=== PATIENT | male | born 1930 | race Caucasian/White ===

== ENCOUNTER 2018-01-02 17:33 | Emergency (ER) | payer MEDICARE, OTHER ==
[~2018-01-02] VITALS: Ht 185.4 cm; Wt 90.7 kg
[~2018-01-02 17:33] MED LIST: ALBUIS IH; ALLO100; ALLO300 PO; AMLO10 PO; Antivert25 MG PO; CARB200 PO; CELE200 PO; CYCL0.05OP; Cardura PO; Cardura Xl8 MG PO; DIAZ5; DIAZ5 PO; DOXA1; DOXA4 PO; ELIQUIS2.5 MG PO; GABA100; GABA100 PO; HYDACE10B; HYDR1TAB94 PO; LEVSOD50; MAGOXI400 PO; MAGSULP; Norco 5-325 Ta1 EACH PO; OXYACE5T PO; POTA10T; POTA10T PO; PRED20 PO; QVAR7.3 G1 IH; SPIR25 PO; Synthroid25 MCG PO; TORS10 PO; TORSE20 PO; TRIAOIA; TRIHYD PO; Vitamin D2000 UNIT PO; WARF1 PO; WARF2 PO; ZAFI20; ZAFI20 PO; [UNRECOGNIZED DRUG - CODE] PO
[2018-01-02 18:20] LABS: Source, Urine Catheter
[2018-01-02 18:25] LABS: Calcium, Ionized (POC) 1.05 mmol/L (1.10-1.46); Chloride (POC) 98 mmol/L (98-108); Creatinine (POC) 3.4 mg/dL (0.8-1.3); Glucose (ISTAT POC) 124 mg/dL (70-99); Hemoglobin (POC) 6.1 g/dL (13.5-17.5); Potassium (POC) 3.5 mmol/L (3.5-5.5); Sodium (POC) 137 mmol/L (135-148); Total CO2 (POC) 26 mmol/L (21-32)
[2018-01-02 18:37] LABS: Bilirubin, Urine Neg (Neg); Blood, Urine 3+ (Neg); Glucose Qualitative, Urine Neg (Neg); Ketones, Urine Neg (Neg); Leukocyte Esterase, Urine Neg (Neg); Nitrite, Urine Neg (Neg); Protein, Urine Neg (Neg); Specific Gravity, Urine 1.015 (1.003-1.022); Urobilinogen, Urine NORM (Normal)
[2018-01-02 18:46] LABS: Appearance, Urine Clear (Clear); Color, Urine Pale Yellow (P-Yellow)
[2018-01-02 18:46] LABS: BASOPHILS ABSOLUTE AUTO 0.01 K/mm3 (0.00-0.23); BASOPHILS PERCENT AUTO 0 % (0-2); EOSINOPHILS ABSOLUTE AUTO 0.06 K/mm3 (0.00-0.68); EOSINOPHILS PERCENT AUTO 1 % (0-6); IMMATURE GRAN ABSOLUTE AUTO 0.16 K/mm3 (0.00-0.10); IMMATURE GRAN PERCENT AUTO 2 % (0-1); LYMPHOCYTES PERCENT AUTO 12 % (21-46); MONOCYTES ABSOLUTE AUTO 0.55 K/mm3 (0.16-1.47); MONOCYTES PERCENT AUTO 5 % (4-13); Mean Corpuscular HGB 30.9 pg (26.0-34.0); Mean Corpuscular HGB Conc 31.1 g/dL (31.5-36.5); Mean Corpuscular Volume 99 fL (80-100); Mean Platelet Volume 9.9 fL (9.1-12.4); NEUTROPHILS ABSOLUTE AUTO 8.74 K/mm3 (1.96-9.15); NEUTROPHILS PERCENT AUTO 81 % (41-73); NRBC ABSOLUTE 0.13 K/mm3 (0.00-0.02); NRBC Auto 1.2 /100 WBC (0.0-0.2); Platelet Count 347 K/mm3 (150-400); RDW Coefficient Variation 18.1 % (11.7-14.2); RDW Standard Deviation 57.1 fL (35.1-46.3); Red Blood Cell Count 1.52 M/mm3 (4.30-5.90); White Blood Cell Count 10.82 K/mm3 (4.00-11.30)
[2018-01-02 18:47] LABS: Bacteria Not Seen /hpf; Red Blood Cells, Urine Not Seen /hpf (0-2); Squamous Epithelial Cells Not Seen /hpf (Few); White Blood Cells, Urine Not Seen /hpf (0-5)
[2018-01-02 18:48] LABS: Albumin, Blood 3.4 g/dL (3.4-5.0); Bilirubin, Total 0.4 mg/dL (0.1-1.0); Bun/Creatinine Ratio 26.9 (12.0-20.0); Calcium, Blood 8.7 mg/dL (8.5-10.1); Creatinine, Blood 3.01 mg/dL (0.60-1.20); Globulin, Blood 3.4 g/dL (2.2-4.0); Hemoglobin 4.7 g/dL (13.5-17.5); Potassium, Blood 3.6 mmol/L (3.5-5.5); Total Protein, Blood 6.8 g/dL (6.4-8.2)
[2018-01-02 18:49] LABS: Hematocrit 15.1 % (37.0-53.0)
[2018-01-02] MEDS ORDERED: ALBU90OI6 INH (18:58)
[2018-01-02] MEDS ORDERED: ZAFI20 PO (18:58)
[2018-01-02] MEDS ORDERED: LIDO700A20 TOP (18:59)
[2018-01-02] MEDS ORDERED: MAG-OXIDE200 MG PO (18:59)
[2018-01-02] MEDS ORDERED: DOCU100 PO (19:00)
[2018-01-02 19:44] LABS: International Normalized Ratio 1.07; Prothrombin Time Results 11.1 Sec (9.7-11.5)
[2018-05-11] MEDS ORDERED: CEFU500T30 PO (14:55)
[2018-05-11] MEDS ORDERED: GABA100 PO (14:56)
[2018-05-11] MEDS ORDERED: AZIT500 PO (14:56)
[2018-10-10] MEDS ORDERED: ZAFI20 PO (05:13)
[2018-10-10] MEDS ORDERED: Aspercreme 1035.4 GM (05:18)
[2018-10-10] MEDS ORDERED: ALLO300 PO (05:19)
[2018-10-10] MEDS ORDERED: DOC250 PO (05:19)
[2018-10-10] MEDS ORDERED: FAMO20 PO (05:20)
[2018-10-10] MEDS ORDERED: FERSU90EL PO (05:21)
[2018-10-10] MEDS ORDERED: CEPH500 PO (06:24)
== END 2018-01-02 21:39 | disposition short-term general hospital (02) ==
LOC: ER 17:33
PROVIDERS: Physician Assistant
DX: K92.2 Gastrointestinal hemorrhage, unspecified (principal); I12.9 Hypertensive chronic kidney disease with stage 1 through stage 4 chronic kidney disease, or unspecified chronic kidney disease; N18.9 Chronic kidney disease, unspecified; D63.1 Anemia in chronic kidney disease; E03.9 Hypothyroidism, unspecified; J44.9 Chronic obstructive pulmonary disease, unspecified; M10.9 Gout, unspecified; I35.0 Nonrheumatic aortic (valve) stenosis; Z87.891 Personal history of nicotine dependence; Z98.890 Other specified postprocedural states; Z79.899 Other long term (current) drug therapy; Z88.5 Allergy status to narcotic agent; Z88.6 Allergy status to analgesic agent; Z88.8 Allergy status to other drugs, medicaments and biological substances
CPT/HCPCS: 36430; 51701; 80047; 80053; 81001; 82272; 83605; 85014; 85025; 85610; 85730; 86850; 86900; 86901; 86923; 96374; 96375; 99285; C9113; P9016

== ENCOUNTER 2018-02-06 17:59 | Inpatient (IN) | payer MEDICARE, OTHER ==
[~2018-02-06] VITALS: Ht 180.3 cm; Wt 91.2 kg
[~2018-02-06 17:59] MED LIST changes: +ALBU90OI6 INH; +DOCU100 PO; +LIDO700A20 TOP; +MAG-OXIDE200 MG PO
[2018-02-06 18:30] LABS: Calcium, Ionized (POC) 1.03 mmol/L (1.10-1.46); Chloride (POC) 101 mmol/L (98-108); Creatinine (POC) 3.1 mg/dL (0.8-1.3); Glucose (ISTAT POC) 118 mg/dL (70-99); Hemoglobin (POC) 9.5 g/dL (13.5-17.5); Potassium (POC) 4.4 mmol/L (3.5-5.5); Sodium (POC) 137 mmol/L (135-148); Total CO2 (POC) 26 mmol/L (21-32)
[2018-02-06 18:39] LABS: BASOPHILS ABSOLUTE AUTO 0.02 K/mm3 (0.00-0.23); BASOPHILS PERCENT AUTO 0 % (0-2); EOSINOPHILS ABSOLUTE AUTO 0.01 K/mm3 (0.00-0.68); EOSINOPHILS PERCENT AUTO 0 % (0-6); Hematocrit 28.3 % (37.0-53.0); Hemoglobin 9.1 g/dL (13.5-17.5); IMMATURE GRAN ABSOLUTE AUTO 0.09 K/mm3 (0.00-0.10); IMMATURE GRAN PERCENT AUTO 1 % (0-1); LYMPHOCYTES ABSOLUTE AUTO 0.25 K/mm3 (0.84-5.20); LYMPHOCYTES PERCENT AUTO 2 % (21-46); MONOCYTES ABSOLUTE AUTO 0.14 K/mm3 (0.16-1.47); MONOCYTES PERCENT AUTO 1 % (4-13); Mean Corpuscular HGB 28.3 pg (26.0-34.0); Mean Corpuscular HGB Conc 32.2 g/dL (31.5-36.5); Mean Platelet Volume 9.2 fL (9.1-12.4); NEUTROPHILS ABSOLUTE AUTO 14.95 K/mm3 (1.96-9.15); NEUTROPHILS PERCENT AUTO 97 % (41-73); Platelet Count 328 K/mm3 (150-400); RDW Coefficient Variation 15.5 % (11.7-14.2); RDW Standard Deviation 50.4 fL (35.1-46.3); Red Blood Cell Count 3.21 M/mm3 (4.30-5.90); White Blood Cell Count 15.46 K/mm3 (4.00-11.30)
[2018-02-06 18:42] LABS: Mean Corpuscular Volume 88 fL (80-100)
[2018-02-06] MEDS ORDERED: FAMO20 PO (18:42)
[2018-02-06] MEDS ORDERED: MAGOXI400 PO (18:42)
[2018-02-06] MEDS ORDERED: POTCHL20ER PO (18:43)
[2018-02-06] MEDS ORDERED: GAVILAX17 GM PO (18:43)
[2018-02-06] MEDS ORDERED: TORSE20 PO (18:44)
[2018-02-06] MEDS ORDERED: ELIQUIS2.5 MG PO (18:47)
[2018-02-06] MEDS ORDERED: SENN187 PO (18:48)
[2018-02-06] MEDS ORDERED: QUET25 PO (18:48)
[2018-02-06] MEDS ORDERED: TAMS.4ER PO (18:49)
[2018-02-06] MEDS ORDERED: FERSU220EL PO (18:49)
[2018-02-06] MEDS ORDERED: Vitamin C100 M1 (18:50)
[2018-02-06] MEDS ORDERED: BECLOMETHASONE (18:50)
[2018-02-06] MEDS ORDERED: ACET325 PO (18:51)
[2018-02-06] MEDS ORDERED: ALBU90OI61 INH (18:52)
[2018-02-06] MEDS ORDERED: MECL12.5 PO (18:53)
[2018-02-06] MEDS ORDERED: LIDO700A20 TOP (18:53)
[2018-02-06 18:56] LABS: Albumin, Blood 2.7 g/dL (3.4-5.0); Albumin/Globulin Ratio 0.6 (0.8-1.8); Bilirubin, Total 0.4 mg/dL (0.1-1.0); Bun/Creatinine Ratio 14.5 (12.0-20.0); Calcium, Blood 8.5 mg/dL (8.5-10.1); Creatinine, Blood 3.04 mg/dL (0.60-1.20); Globulin, Blood 4.9 g/dL (2.2-4.0); Potassium, Blood 4.4 mmol/L (3.5-5.5); Total Protein, Blood 7.6 g/dL (6.4-8.2)
[2018-02-06 19:05] LABS: International Normalized Ratio 1.08; Prothrombin Time Results 11.3 Sec (9.7-11.5)
[2018-02-06 19:39] LABS: Source, Urine Catheter
[2018-02-06 19:42] LABS: Appearance, Urine Hazy (Clear); Bilirubin, Urine Neg (Neg); Blood, Urine 5+ (Neg); Color, Urine Yellow (P-Yellow); Glucose Qualitative, Urine Neg (Neg); Ketones, Urine Neg (Neg); Leukocyte Esterase, Urine 2+ (Neg); Nitrite, Urine Pos (Neg); Protein, Urine 2+ (Neg); Urobilinogen, Urine NORM (Normal)
[2018-02-06 19:53] LABS: Bacteria Mod /hpf; Red Blood Cells, Urine 25-50 /hpf (0-2); Squamous Epithelial Cells Rare /hpf (Few); White Blood Cells, Urine 25-50 /hpf (0-5)
[2018-02-07 00:13] LABS: U Amphetamine Screen Not Detected; U Barbituate Screen Not Detected; U Benzodiazapine Screen Not Detected; U Buprenorphine Screen Not Detected; U Cannabinoids Screen Not Detected; U Cocaine Screen Not Detected; U Methadone Screen Not Detected; U Methamphetamine Screen Not Detected; U Opiates Screen DETECTED; U Oxycodone Screen Not Detected; U Phencyclidine Screen Not Detected; U Propoxyphene Screen Not Detected
[2018-02-07 00:21] LABS: Influenza A Negative (NEGATIVE); Influenza B Negative (NEGATIVE)
[2018-02-07 04:18] LABS: BASOPHILS ABSOLUTE AUTO 0.03 K/mm3 (0.00-0.23); BASOPHILS PERCENT AUTO 0 % (0-2); EOSINOPHILS PERCENT AUTO 0 % (0-6); Hematocrit 23.9 % (37.0-53.0); Hemoglobin 7.5 g/dL (13.5-17.5); IMMATURE GRAN ABSOLUTE AUTO 0.15 K/mm3 (0.00-0.10); IMMATURE GRAN PERCENT AUTO 1 % (0-1); LYMPHOCYTES ABSOLUTE AUTO 0.49 K/mm3 (0.84-5.20); LYMPHOCYTES PERCENT AUTO 2 % (21-46); MONOCYTES ABSOLUTE AUTO 0.41 K/mm3 (0.16-1.47); MONOCYTES PERCENT AUTO 2 % (4-13); Mean Corpuscular HGB Conc 31.4 g/dL (31.5-36.5); Mean Corpuscular Volume 89 fL (80-100); Mean Platelet Volume 9.4 fL (9.1-12.4); NEUTROPHILS ABSOLUTE AUTO 20.34 K/mm3 (1.96-9.15); NEUTROPHILS PERCENT AUTO 95 % (41-73); Platelet Count 279 K/mm3 (150-400); RDW Coefficient Variation 15.8 % (11.7-14.2); RDW Standard Deviation 50.9 fL (35.1-46.3); Red Blood Cell Count 2.68 M/mm3 (4.30-5.90); White Blood Cell Count 21.42 K/mm3 (4.00-11.30)
[2018-02-07 04:39] LABS: Albumin, Blood 1.9 g/dL (3.4-5.0); Albumin/Globulin Ratio 0.5 (0.8-1.8); Bilirubin, Total 0.3 mg/dL (0.1-1.0); Calcium, Blood 7.4 mg/dL (8.5-10.1); Creatinine, Blood 2.64 mg/dL (0.60-1.20); Globulin, Blood 4.1 g/dL (2.2-4.0); Potassium, Blood 3.9 mmol/L (3.5-5.5)
[2018-02-07 14:14] LABS: Hematocrit 25.5 % (37.0-53.0); Hemoglobin 8.1 g/dL (13.5-17.5)
[2018-02-08] MEDS ORDERED: Flonase 0.05% N16 GM (16:08)
== END 2018-02-08 13:08 | DRG 871 ==
LOC: ER 17:59 → PCU 20:38 → MEDS 02-07 16:14 → ENPENDDIS 02-08 09:38 → MEDS 02-08 13:08
PROVIDERS: Emergency Medicine; Hospitalist; Internal Medicine
DX: A41.9 Sepsis, unspecified organism (principal); J96.01 Acute respiratory failure with hypoxia; G93.40 Encephalopathy, unspecified; N17.9 Acute kidney failure, unspecified; N39.0 Urinary tract infection, site not specified; I12.9 Hypertensive chronic kidney disease with stage 1 through stage 4 chronic kidney disease, or unspecified chronic kidney disease; N18.3 Chronic kidney disease, stage 3 (moderate); M10.9 Gout, unspecified; Z86.711 Personal history of pulmonary embolism; E03.9 Hypothyroidism, unspecified; J44.9 Chronic obstructive pulmonary disease, unspecified; I35.0 Nonrheumatic aortic (valve) stenosis; Z66 Do not resuscitate; R33.9 Retention of urine, unspecified; D64.9 Anemia, unspecified; I48.91 Unspecified atrial fibrillation
CPT/HCPCS: 36415; 36430; 51702; 51798; 70450; 71045; 80047; 80053; 81001; 83605; 85014; 85018; 85025; 85610; 85730; 86850; 86900; 86901; 86923; 87040; 87077; 87086; 87186; 87804; 93005; 93010; 94760; 96361; 96365; 96366; 96368; 99285; J0456; J0696; J1650; J1956; J2543; J7030; J7050; P9016

== ENCOUNTER → 2018-04-06 | Outpatient (CLI) | payer MEDICARE, OTHER ==
[~2018-04-06] MED LIST changes: +ACET325 PO; +ALBU90OI61 INH; +BECLOMETHASONE; +FAMO20 PO; +FERSU220EL PO; +Flonase 0.05% N16 GM; +GAVILAX17 GM PO; +MECL12.5 PO; +POTCHL20ER PO; +QUET25 PO; +SENN187 PO; +TAMS.4ER PO; +Vitamin C100 M1
[2018-04-06 17:02] LABS: RETIC HGB EQUIVALENT 29.7 pg (28.20-36.60); RETICULOCYTE COUNT PERCENT 1.26 % (0.50-2.50)
[2018-04-11 21:08] LABS: ALBUMIN 3.1 g/dL (2.9-4.4); ALPHA-1-GLOBULIN 0.3 g/dL (0.0-0.4); ALPHA-2-GLOBULIN 0.8 g/dL (0.4-1.0); BETA GLOBULIN 0.9 g/dL (0.7-1.3); GAMMA GLOBULIN 1.2 g/dL (0.4-1.8); GLOBULIN, TOTAL 3.2 g/dL (2.2-3.9); IMMUNOGLOBULIN A, QN, SERUM 319 mg/dL (61-437); IMMUNOGLOBULIN G, QN, SERUM 1029 mg/dL (700-1600); IMMUNOGLOBULIN M, QN, SERUM 88 mg/dL (15-143); M-SPIKE 0.3 g/dL (Not Observed); PROTEIN, TOTAL, SERUM 6.3 g/dL (6.0-8.5)
== END ==
LOC: LAB SHORT 16:10 → LAB 16:10
PROVIDERS: Internal Medicine Hematology & Oncology
DX: N18.4 Chronic kidney disease, stage 4 (severe) (principal); E61.1 Iron deficiency; D51.0 Vitamin B12 deficiency anemia due to intrinsic factor deficiency
CPT/HCPCS: 82306; 82607; 82668; 82746; 82784; 84165; 85045; 86334

== ENCOUNTER 2018-12-11 00:38 | Emergency (ER) | payer MEDICARE, OTHER ==
[~2018-12-11] VITALS: Ht 182.9 cm; Wt 113.4 kg
[~2018-12-11 00:38] MED LIST changes: +AZIT500 PO; +Aspercreme 1035.4 GM; +CEFU500T30 PO; +CEPH500 PO; +DOC250 PO; +FERSU90EL PO
[2018-12-11] MEDS ORDERED: LOPE2C PO (00:54)
[2018-12-11] MEDS ORDERED: ACCOLATE PO (00:55)
[2018-12-11] MEDS ORDERED: ANTACID PLUS A355 M1 PO (00:56)
[2018-12-11] MEDS ORDERED: Aspercreme 1035.4 GM TP (00:56)
[2018-12-11] MEDS ORDERED: SENN187 PO (00:57)
[2018-12-11] MEDS ORDERED: TAMS.4ER PO (00:58)
[2018-12-11] MEDS ORDERED: SPIR25 PO (00:58)
[2018-12-11] MEDS ORDERED: TORS10 PO (00:59)
[2018-12-11] MEDS ORDERED: VITAMIN C500 M1 PO (01:00)
[2018-12-11] MEDS ORDERED: MECL12.5 PO (01:04)
[2018-12-11] MEDS ORDERED: Milk Of Ma400 MG/5 M PO (01:05)
== END 2018-12-11 02:54 | disposition home or self-care (01) ==
LOC: ER 00:38
DX: T40.2X1A Poisoning by other opioids, accidental (unintentional), initial encounter (principal); R41.82 Altered mental status, unspecified; Z88.5 Allergy status to narcotic agent; Z88.8 Allergy status to other drugs, medicaments and biological substances; Z79.899 Other long term (current) drug therapy; I13.0 Hypertensive heart and chronic kidney disease with heart failure and stage 1 through stage 4 chronic kidney disease, or unspecified chronic kidney disease; N18.9 Chronic kidney disease, unspecified; I50.9 Heart failure, unspecified; E03.9 Hypothyroidism, unspecified; J44.9 Chronic obstructive pulmonary disease, unspecified
CPT/HCPCS: 70450; 93005; 93010; 99285-25

== ENCOUNTER 2019-03-20 08:35 | Emergency (ER) | payer MEDICARE, OTHER ==
[~2019-03-20] VITALS: Ht 182.9 cm; Wt 79.4 kg
[~2019-03-20 08:35] MED LIST changes: +ACCOLATE PO; +ANTACID PLUS A355 M1 PO; +Aspercreme 1035.4 GM TP; +LOPE2C PO; +Milk Of Ma400 MG/5 M PO; +VITAMIN C500 M1 PO
[2019-03-20] MEDS ORDERED: ALLO300 PO (08:44)
[2019-03-20] MEDS ORDERED: Ferrous Sulfat325 M2 PO (08:47)
[2019-03-20 10:04] LABS: BASOPHILS ABSOLUTE AUTO 0.06 K/mm3 (0.00-0.23); BASOPHILS PERCENT AUTO 1 % (0-2); EOSINOPHILS ABSOLUTE AUTO 0.25 K/mm3 (0.00-0.68); EOSINOPHILS PERCENT AUTO 3 % (0-6); Hematocrit 36.7 % (37.0-53.0); Hemoglobin 11.7 g/dL (13.5-17.5); IMMATURE GRAN ABSOLUTE AUTO 0.02 K/mm3 (0.00-0.10); IMMATURE GRAN PERCENT AUTO 0 % (0-1); LYMPHOCYTES ABSOLUTE AUTO 1.29 K/mm3 (0.84-5.20); LYMPHOCYTES PERCENT AUTO 18 % (21-46); MONOCYTES ABSOLUTE AUTO 0.52 K/mm3 (0.16-1.47); MONOCYTES PERCENT AUTO 7 % (4-13); Mean Corpuscular HGB 31.5 pg (26.0-34.0); Mean Corpuscular HGB Conc 31.9 g/dL (31.5-36.5); Mean Corpuscular Volume 99 fL (80-100); Mean Platelet Volume 9.5 fL (9.1-12.4); NEUTROPHILS ABSOLUTE AUTO 5.15 K/mm3 (1.96-9.15); NEUTROPHILS PERCENT AUTO 71 % (41-73); Platelet Count 235 K/mm3 (150-400); RDW Coefficient Variation 14.1 % (11.7-14.2); RDW Standard Deviation 50.3 fL (35.1-46.3); Red Blood Cell Count 3.72 M/mm3 (4.30-5.90); White Blood Cell Count 7.29 K/mm3 (4.00-11.30)
[2019-03-20 10:16] LABS: Albumin, Blood 3.2 g/dL (3.4-5.0); Albumin/Globulin Ratio 0.7 (0.8-1.8); Bilirubin, Total 0.4 mg/dL (0.1-1.0); Bun/Creatinine Ratio 16.8 (12.0-20.0); Calcium, Blood 9.7 mg/dL (8.5-10.1); Creatinine, Blood 3.45 mg/dL (0.60-1.20); Globulin, Blood 4.6 g/dL (2.2-4.0); Potassium, Blood 4.5 mmol/L (3.5-5.5); Total Protein, Blood 7.8 g/dL (6.4-8.2)
[2019-03-20 11:58] LABS: Source, Urine Catheter
[2019-03-20 12:04] LABS: Bilirubin, Urine Neg (Neg); Blood, Urine 1+ (Neg); Glucose Qualitative, Urine Neg (Neg); Ketones, Urine Neg (Neg); Leukocyte Esterase, Urine 3+ (Neg); Nitrite, Urine Neg (Neg); Protein, Urine 2+ (Neg); Specific Gravity, Urine 1.015 (1.003-1.022); Urobilinogen, Urine NORM (Normal)
[2019-03-20 12:15] LABS: Appearance, Urine Hazy (Clear); Color, Urine Yellow (P-Yellow)
[2019-03-20 12:16] LABS: Bacteria Many /hpf; Squamous Epithelial Cells Few /hpf (Few); White Blood Cells, Urine 25-50 /hpf (0-5)
[2019-03-20] MEDS ORDERED: CEPH500 PO (13:27)
== END 2019-03-20 15:56 | disposition home or self-care (01) ==
LOC: ER 08:35
PROVIDERS: Emergency Medicine
DX: N39.0 Urinary tract infection, site not specified (principal); Z88.5 Allergy status to narcotic agent; Z88.8 Allergy status to other drugs, medicaments and biological substances; Z88.1 Allergy status to other antibiotic agents; Z79.899 Other long term (current) drug therapy; I13.0 Hypertensive heart and chronic kidney disease with heart failure and stage 1 through stage 4 chronic kidney disease, or unspecified chronic kidney disease; I50.9 Heart failure, unspecified; N18.9 Chronic kidney disease, unspecified; E03.9 Hypothyroidism, unspecified; D64.9 Anemia, unspecified; J44.9 Chronic obstructive pulmonary disease, unspecified
CPT/HCPCS: 70450; 71046; 80053; 81001; 85025; 87086; 93005; 93010; 96374; 96375; 99285-25; J0696; J2310

== ENCOUNTER 2019-04-24 07:01 | Inpatient (IN) | payer MEDICARE, OTHER ==
[~2019-04-24] VITALS: Ht 182.9 cm; Wt 84.1 kg
[~2019-04-24 07:01] MED LIST changes: +ASCO500 PO; +Ferrous Sulfat325 M2 PO; -VITAMIN C500 M1 PO
[2019-04-24 07:14] LABS: Source, Urine Catheter
[2019-04-24 07:17] LABS: Appearance, Urine Clear (Clear); Bilirubin, Urine Neg (Neg); Blood, Urine 1+ (Neg); Color, Urine Yellow (P-Yellow); Glucose Qualitative, Urine Neg (Neg); Ketones, Urine Neg (Neg); Leukocyte Esterase, Urine Neg (Neg); Nitrite, Urine Neg (Neg); Protein, Urine 2+ (Neg); Specific Gravity, Urine 1.015 (1.003-1.022); Urobilinogen, Urine NORM (Normal)
[2019-04-24 07:23] LABS: BASOPHILS ABSOLUTE AUTO 0.03 K/mm3 (0.00-0.23); BASOPHILS PERCENT AUTO 0 % (0-2); EOSINOPHILS ABSOLUTE AUTO 0.06 K/mm3 (0.00-0.68); EOSINOPHILS PERCENT AUTO 1 % (0-6); Hematocrit 38.8 % (37.0-53.0); Hemoglobin 12.4 g/dL (13.5-17.5); IMMATURE GRAN ABSOLUTE AUTO 0.06 K/mm3 (0.00-0.10); IMMATURE GRAN PERCENT AUTO 1 % (0-1); LYMPHOCYTES ABSOLUTE AUTO 1.22 K/mm3 (0.84-5.20); LYMPHOCYTES PERCENT AUTO 14 % (21-46); MONOCYTES ABSOLUTE AUTO 0.53 K/mm3 (0.16-1.47); MONOCYTES PERCENT AUTO 6 % (4-13); Mean Corpuscular Volume 97 fL (80-100); Mean Platelet Volume 9.7 fL (9.1-12.4); NEUTROPHILS ABSOLUTE AUTO 7.08 K/mm3 (1.96-9.15); NEUTROPHILS PERCENT AUTO 79 % (41-73); Platelet Count 289 K/mm3 (150-400); RDW Coefficient Variation 14.2 % (11.7-14.2); RDW Standard Deviation 50.2 fL (35.1-46.3); White Blood Cell Count 8.98 K/mm3 (4.00-11.30)
[2019-04-24] MEDS ORDERED: CARB100ER PO (07:30)
[2019-04-24] MEDS ORDERED: Flonase 0.05% N16 GM (07:31)
[2019-04-24] MEDS ORDERED: LEVSOD25 PO ×2 (07:31→10:16)
[2019-04-24] MEDS ORDERED: MAGOXI400 PO (07:31)
[2019-04-24] MEDS ORDERED: Calmoseptine Oi71 GM ×2 (07:32→07:34)
[2019-04-24] MEDS ORDERED: GAVILAX17 GM PO (07:32)
[2019-04-24] MEDS ORDERED: CHOL10002 PO (07:32)
[2019-04-24] MEDS ORDERED: POTCHL10ER PO (07:32)
[2019-04-24] MEDS ORDERED: BISA10S PR (07:33)
[2019-04-24] MEDS ORDERED: ASPERCREME76.5 GM TOP (07:33)
[2019-04-24] MEDS ORDERED: Secura Protecti50 GM TP (07:34)
[2019-04-24 07:42] LABS: Albumin, Blood 3.3 g/dL (3.4-5.0); Albumin/Globulin Ratio 0.7 (0.8-1.8); Bilirubin, Total 0.4 mg/dL (0.1-1.0); Bun/Creatinine Ratio 11.5 (12.0-20.0); Calcium, Blood 13.7 mg/dL (8.5-10.1); Creatinine, Blood 4.33 mg/dL (0.60-1.20); Globulin, Blood 4.6 g/dL (2.2-4.0); Potassium, Blood 3.5 mmol/L (3.5-5.5); Total Protein, Blood 7.9 g/dL (6.4-8.2)
[2019-04-24 07:53] LABS: Squamous Epithelial Cells Not Seen /hpf (Few); White Blood Cells, Urine 0-2 /hpf (0-5)
[2019-04-24 07:54] LABS: Bacteria Rare /hpf; Hyaline Casts 0-2 /lpf (0-2); Mucus Light (0-Heavy)
[2019-04-24] MEDS ORDERED: DOC250 PO (10:10)
[2019-04-24] MEDS ORDERED: CALMOSEPTINE O3.5 GM TOP (10:21)
[2019-04-24] MEDS ORDERED: Norco 5-325 Ta1 EACH PO (10:27)
--- NOTE | 2019-04-24 10:37 | NUR ---
CALLED [facility] FOR CONSULT
[2019-04-24 12:26] LABS: Bun/Creatinine Ratio 11.7 (12.0-20.0); Calcium, Blood 13.3 mg/dL (8.5-10.1); Creatinine, Blood 4.19 mg/dL (0.60-1.20)
--- NOTE | 2019-04-24 14:45 | NUR ---
Review of EMR revealed that pt's POLST on file is not compatible or current with the more recently completed POLST sent to the hospital with him this am. The most recent POLST does not have his medical POA listed or page two completed. NEW POLST completed with pt'd Adia bonner, his medical POA today, by t/c. It was reviewed and signed by , shared with RN and faxed to medical records before returning to the chart. I called Cm Swank to inform them of new POLST also. Visit made to pt, lying in bed with hob elev, knees curled up and leaning to right side. His eyes are closed and he did not respond or open his eyes to verbal or tactile stimuli. He is not clenching, grimacing or gripping in face or extremities. I did not note nonverbal indicators of severe pain or agitation but he does not appear relaxed or to be sleeping restfully either. I wrote his medical POA's name and # on his white board. Update given to kailey and she asked that I call again tomorrow with update on status. Update given to Cm court also. Pt's kailey verbalized a number of times that she wanted our approach to be Palliative. His baseline dementia has been a limiting factor and decreased his quality of life for years. Pt did not recognize his daughter at his recent birthday libertarian but knew she was familiar to him. Currently pt's KPS score is 20-30% From notes, his baseline KPS score is 40%. PPS score is also 20-30%. In addition to pt's moderate to severe dementia pt also has acute on chronic renal failure, COPD, aortic stenosis, diastolic heart failure, anemia and hypothyroid. Kailey states her dad expressed his desire for supportive but not agressive care and would not want dialysis, tube feedings or prolonged artificial nutrition or hydration if he could not resume PO intake of food/fluids within a short amount of time. All of above reported to pt's and documented on his POLST.
--- NOTE | 2019-04-24 14:46 | NUR ---
AK RECEIVED 10AM. SETTLED TO BED. CAN TELL NAME. ANS OCC Y.N QUEST. DENIES PAIN . H/R REG, NO MURMER NOTED. NO TELE. LUNGS CLAR, RESP EASY, UNLABORED. ON R.A. BT X4 LAST BM UNKNOWN BY PT. VOIDS TALAVERA CATH. DRAINING CLEAR YELLOW FLUID. BED IN LOW POSITION, CALL LITE IN REACH, BED ALARM ON FOR SAFEY
[2019-04-24 15:44] LABS: Bun/Creatinine Ratio 11.1 (12.0-20.0); Calcium, Blood 12.5 mg/dL (8.5-10.1); Creatinine, Blood 4.05 mg/dL (0.60-1.20); Potassium, Blood 3.8 mmol/L (3.5-5.5)
--- NOTE | 2019-04-24 17:49 | NUR ---
PT NOW MORE AWAKE. ATE SOME OF HIS DINNER. HE STATES LIKES THE [employer] JUICE. ATE A LITTLE OF STEW. THIS AM , HE WAS UNABLE TO TAKE AM MEDS. COMBATIVE. IMPROVED SOME AT THIS TIME. ABLE TO TELL ME HIS NAME, AGE, BUT NOT . BED IN LOW POSITION, CALL LITE IN REACH, BED ALARM ON FOR SAFETY.
--- NOTE | 2019-04-24 18:37 | NUR ---
CALLED IBRAHIMA AT [facility]. SHE STATES PT NORMALLY TALKATIVE, FEEDS SELF, GRADUAL DECLINE OVER LAST 3 DAYS. INC CONFUSION, NOT EATING, FELL AT FACILITY YEST. NORMAL PILLS WHOLE WITH H2O.
[2019-04-24 19:50] LABS: Bun/Creatinine Ratio 11.8 (12.0-20.0); Calcium, Blood 12.3 mg/dL (8.5-10.1); Creatinine, Blood 3.97 mg/dL (0.60-1.20); Potassium, Blood 3.6 mmol/L (3.5-5.5)
[2019-04-25 05:11] LABS: BASOPHILS ABSOLUTE AUTO 0.03 K/mm3 (0.00-0.23); BASOPHILS PERCENT AUTO 0 % (0-2); EOSINOPHILS ABSOLUTE AUTO 0.19 K/mm3 (0.00-0.68); EOSINOPHILS PERCENT AUTO 2 % (0-6); Hematocrit 33.8 % (37.0-53.0); Hemoglobin 10.7 g/dL (13.5-17.5); IMMATURE GRAN ABSOLUTE AUTO 0.05 K/mm3 (0.00-0.10); IMMATURE GRAN PERCENT AUTO 1 % (0-1); LYMPHOCYTES ABSOLUTE AUTO 0.83 K/mm3 (0.84-5.20); LYMPHOCYTES PERCENT AUTO 11 % (21-46); MONOCYTES PERCENT AUTO 5 % (4-13); Mean Corpuscular HGB 31.6 pg (26.0-34.0); Mean Corpuscular HGB Conc 31.7 g/dL (31.5-36.5); Mean Platelet Volume 9.7 fL (9.1-12.4); NEUTROPHILS ABSOLUTE AUTO 6.29 K/mm3 (1.96-9.15); NEUTROPHILS PERCENT AUTO 81 % (41-73); Platelet Count 253 K/mm3 (150-400); RDW Coefficient Variation 14.2 % (11.7-14.2); RDW Standard Deviation 52.1 fL (35.1-46.3); Red Blood Cell Count 3.39 M/mm3 (4.30-5.90); White Blood Cell Count 7.79 K/mm3 (4.00-11.30)
[2019-04-25 05:13] LABS: Mean Corpuscular Volume 100 fL (80-100)
[2019-04-25 05:31] LABS: Albumin, Blood 2.7 g/dL (3.4-5.0); Anion Gap 7 mmol/L (6-16); Blood Urea Nitrogen 42 mg/dL (8-24); Bun/Creatinine Ratio 11.5 (12.0-20.0); CO2, Blood 24 mmol/L (21-32); Calcium, Blood 11.4 mg/dL (8.5-10.1); Chloride, Blood 117 mmol/L (98-108); Creatinine, Blood 3.66 mg/dL (0.60-1.20); Glomerular Filtration Rate 17 (60-); Glucose, Blood 83 mg/dL (70-99); Phosphorus, Blood 2.8 mg/dL (2.5-4.9); Potassium, Blood 3.2 mmol/L (3.5-5.5); Sodium, Blood 148 mmol/L (136-145)
--- NOTE | 2019-04-25 06:17 | NUR ---
SHIFT SUMMARY PT SLEPT SOUNDLY T/O NIGHT. AOX1, DOES NOT FOLLOW DIRECTIONS, ANSWERS OCCASIONAL QUESTIONS W/HEAD NODDING OR YES/NO. THIS AM PT IS MORE AWAKE, ALERT, VERBAL, COOPERATIVE W/CARE STATING "GOOD MORNING," & ALLOWING CARE BE PERFORMED W/O HITTING LIKE LAST NIGHT. LAST NIGHT PT WOULD NOT OPEN MOUTH FOR HS MEDS & KEPT TRYING TO SWAT/HIT ANYTIME STAFF WENT NEAR HIM. NO S/S OF PAIN, NAUSEA OR SOB. VSS. TALAVERA IS PATENT & DRAINING CLEAR YELLOW URINE. NS RUNNING @200ML/HR PER ORDERS. PT HAD SMALL LIQUID BLACK BM LAST NIGHT. BED ALARM ON FOR SAFETY & CALL LIGHT IN REACH.
--- NOTE | 2019-04-25 12:56 | NUR ---
PATIENT TRANSFERRED TO ROOM 353, REPORT RECEIVED FROM PIPE PITTS.
--- NOTE | 2019-04-25 18:28 | NUR ---
PATIENT ORIENTED TO SELF ONLY. TRANSFERRED TO ROOM 353 DUE TO HIGH FALL RISK. PATIENT HAS BEEN CALM AND COOPERATIVE THIS AFTERNOON. REFUSED MEDICATIONS THIS AM, BUT DID TAKE A NORCO X1 CRUSHED IN PUDDING THIS EVENING. PATIENT REPORTS SHOULDER PAIN. FALL PRECAUTIONS IN PLACE PER UNIT PROTOCOL. VSS THIS SHIFT. LUNGS COARSE IN BASES, ON RA. TALAVERA TO GRAVITY DRAINING LARGE AMOUNT OF CLEAR/YELLOW URINE. IV FLUIDS CHANGED TO D5 1/2 NS AT 100ML/HR. 22G IV TO L WRIST WNL. MEPILEX TO COCCYX COVERING SMALL PRESSURE SORE.
[2019-04-26 04:57] LABS: BASOPHILS ABSOLUTE AUTO 0.04 K/mm3 (0.00-0.23); BASOPHILS PERCENT AUTO 0 % (0-2); EOSINOPHILS ABSOLUTE AUTO 0.21 K/mm3 (0.00-0.68); EOSINOPHILS PERCENT AUTO 2 % (0-6); Hematocrit 33.9 % (37.0-53.0); Hemoglobin 10.8 g/dL (13.5-17.5); IMMATURE GRAN ABSOLUTE AUTO 0.07 K/mm3 (0.00-0.10); IMMATURE GRAN PERCENT AUTO 1 % (0-1); LYMPHOCYTES ABSOLUTE AUTO 0.83 K/mm3 (0.84-5.20); LYMPHOCYTES PERCENT AUTO 9 % (21-46); MONOCYTES ABSOLUTE AUTO 0.53 K/mm3 (0.16-1.47); MONOCYTES PERCENT AUTO 6 % (4-13); Mean Corpuscular HGB 31.4 pg (26.0-34.0); Mean Corpuscular HGB Conc 31.9 g/dL (31.5-36.5); Mean Corpuscular Volume 99 fL (80-100); Mean Platelet Volume 9.5 fL (9.1-12.4); NEUTROPHILS ABSOLUTE AUTO 7.55 K/mm3 (1.96-9.15); NEUTROPHILS PERCENT AUTO 82 % (41-73); Platelet Count 257 K/mm3 (150-400); RDW Coefficient Variation 14.4 % (11.7-14.2); RDW Standard Deviation 51.7 fL (35.1-46.3); Red Blood Cell Count 3.44 M/mm3 (4.30-5.90); White Blood Cell Count 9.23 K/mm3 (4.00-11.30)
[2019-04-26 05:17] LABS: Albumin, Blood 2.6 g/dL (3.4-5.0); Anion Gap 7 mmol/L (6-16); Blood Urea Nitrogen 33 mg/dL (8-24); Bun/Creatinine Ratio 10.1 (12.0-20.0); CO2, Blood 23 mmol/L (21-32); Chloride, Blood 116 mmol/L (98-108); Creatinine, Blood 3.28 mg/dL (0.60-1.20); Glomerular Filtration Rate 19 (60-); Glucose, Blood 100 mg/dL (70-99); Phosphorus, Blood 2.1 mg/dL (2.5-4.9); Potassium, Blood 3.4 mmol/L (3.5-5.5); Sodium, Blood 146 mmol/L (136-145)
--- NOTE | 2019-04-26 05:29 | NUR ---
SHIFT SUMMARY PT SLEPT WELL, HAS TRIED A COUPLE OF TIMES TO CRAWL OUT OF BED. IVF'S INFUSING PER PUMP WITHOUT DIFFICULTY. TALAVERA PATENT AND DRAINING CLEAR YELLOW URINE. NO ACUTE EVENTS OVERNIGHT, WILL CONTINUE TO MONITOR.
--- NOTE | 2019-04-26 19:52 | NUR ---
SHIFT SUMMARY: NO ACUTE CHANGES TO REPORT THIS SHIFT. PT HX DEMENTIA; PT ALERT; ORIENTED TO SELF. NO C/O PAIN THIS SHIFT; PT IN NO APPARENT DISTRESS. TALAVERA IN PLACE; PATENT AND DRAINING. IVF + POTASSIUM CONTINUING. REPORT GIVEN TO ONCOMING RN.
[2019-04-27 05:29] LABS: BASOPHILS ABSOLUTE AUTO 0.03 K/mm3 (0.00-0.23); BASOPHILS PERCENT AUTO 0 % (0-2); EOSINOPHILS ABSOLUTE AUTO 0.23 K/mm3 (0.00-0.68); EOSINOPHILS PERCENT AUTO 3 % (0-6); Hematocrit 33.3 % (37.0-53.0); Hemoglobin 10.5 g/dL (13.5-17.5); IMMATURE GRAN ABSOLUTE AUTO 0.05 K/mm3 (0.00-0.10); IMMATURE GRAN PERCENT AUTO 1 % (0-1); LYMPHOCYTES ABSOLUTE AUTO 0.79 K/mm3 (0.84-5.20); LYMPHOCYTES PERCENT AUTO 10 % (21-46); MONOCYTES ABSOLUTE AUTO 0.45 K/mm3 (0.16-1.47); MONOCYTES PERCENT AUTO 6 % (4-13); Mean Corpuscular HGB 30.5 pg (26.0-34.0); Mean Corpuscular HGB Conc 31.5 g/dL (31.5-36.5); Mean Corpuscular Volume 97 fL (80-100); Mean Platelet Volume 9.8 fL (9.1-12.4); NEUTROPHILS ABSOLUTE AUTO 6.15 K/mm3 (1.96-9.15); NEUTROPHILS PERCENT AUTO 80 % (41-73); Platelet Count 224 K/mm3 (150-400); RDW Coefficient Variation 14.2 % (11.7-14.2); RDW Standard Deviation 49.6 fL (35.1-46.3); Red Blood Cell Count 3.44 M/mm3 (4.30-5.90)
[2019-04-27 05:51] LABS: Albumin, Blood 2.4 g/dL (3.4-5.0); Anion Gap 10 mmol/L (6-16); Blood Urea Nitrogen 26 mg/dL (8-24); Bun/Creatinine Ratio 9.2 (12.0-20.0); CO2, Blood 22 mmol/L (21-32); Calcium, Blood 10.7 mg/dL (8.5-10.1); Chloride, Blood 112 mmol/L (98-108); Creatinine, Blood 2.83 mg/dL (0.60-1.20); Glomerular Filtration Rate 23 (60-); Glucose, Blood 103 mg/dL (70-99); Phosphorus, Blood 3.2 mg/dL (2.5-4.9); Potassium, Blood 3.3 mmol/L (3.5-5.5); Sodium, Blood 144 mmol/L (136-145)
--- NOTE | 2019-04-27 06:40 | NUR ---
SHIFT SUMMARY PT BEEN SLEEPY LETHARGIC BUT DID WAKE ENOUGH TO TAKE HIS PILLS AND RESPOND BUT WOULD GO BACK TO SLEEP. INCONT OF DARK GREEN BM. TALAVERA DRAINING. SCD'S IN PLACE. HE WAS ABLE TO SLEEP T/O NIGHT. BED ALARM IN USE.
--- NOTE | 2019-04-27 18:50 | NUR ---
SHIFT SUMMARY 89 YR OLD MALE FROM [facility]. ADMITTED FOR ACUTE RENAL FAILURE. DNR. CONFUSED. HX:DEMENTIA. SLEEPY THROUGH MOST OF SHIFT. VERY LITTLE INTAKE. NO VOID SINCE TALAVERA REMOVAL. BLADDER SCAN REVEALS 171 ML IN BLADDER. CHARGE STATES TO MONITOR FOR NOW. LIFT PT. MAX ASSIST DUE TO STIFF MUSCLES. CRUSH MEDS IN APPLESAUCE. TALAVERA WAS DC'D TODAY. IV IN LFT HAND IS SALINE LOCKED. SOFT BITE SIZE DIET.
[2019-04-28 05:11] LABS: Albumin, Blood 2.6 g/dL (3.4-5.0); Anion Gap 8 mmol/L (6-16); Blood Urea Nitrogen 23 mg/dL (8-24); Bun/Creatinine Ratio 8.4 (12.0-20.0); CO2, Blood 23 mmol/L (21-32); Calcium, Blood 10.8 mg/dL (8.5-10.1); Chloride, Blood 111 mmol/L (98-108); Creatinine, Blood 2.73 mg/dL (0.60-1.20); Glomerular Filtration Rate 23 (60-); Glucose, Blood 88 mg/dL (70-99); Phosphorus, Blood 3.2 mg/dL (2.5-4.9); Potassium, Blood 3.6 mmol/L (3.5-5.5); Sodium, Blood 142 mmol/L (136-145)
--- NOTE | 2019-04-28 07:15 | NUR ---
SHIFT SUMMARY PT GRAND RONDE TRIBES ORIENTED TO SELF. INCONT OF URINE AND LARGE LIQ DARK GREEN GRITTY BM. NEW MEPILEX APPLIED TO COCCYX. HE WAS ABLE TO SLEEP T/O NIGHT Q2HR TURNS. BED ALARM IN USE. SCD'S IN PLACE.
--- NOTE | 2019-04-28 10:55 | NUR ---
ELLIQUIS GIVEN SPEECH DOING A SWALLOW EVAL AT THIS TIME. SKIPPED ELLIQUIS DOSE THIS MORNING WAS FINALLY GIVEN HOSPITALIST ORDERED. SPEECH EVAL: PT COUGHING ON ALL TEXTURES TODAY. ORAL CARE WITH SUCTION. NPO FOR REST OF TODAY
--- NOTE | 2019-04-28 18:27 | NUR ---
SHIFT SUMMARY 89 YR OLD MALE ADMITTED FOR ACUTE RENAL FAILURE. DNR. FROM [facility] PT HAD A SWALLOW EVAL TODAY AND WAS MADE NPO FOR THE DAY, HE HAD DIFFICULTY SWALLOWING ALL TEXTURES AND COUGHED THROUGH ALL. HE IS INCONTINENT. CONSULT CALLED TODAY TO DR. OJEDA. PT HAD PULLED HIS PREVIOUS IV OUT, THERE IS A NEW IV IN HIS RT AC. ATTENDS ARE IN PLACE. PT IS MORE CONFUSED AND SLEEPY TODAY.
--- NOTE | 2019-04-29 07:09 | NUR ---
SHIFT SUMMARY PT IS AN 89 Y/O MALE, ADMITTED FOR ACUTE RENAL FAILURE. HE IS A&O X SELF, AND ON BEDREST. PER SPEECH THERAPY RECOMMENDATION, PT IS CURRENTLY NPO HE IS UNABLE TO TOLERATE PO INTAKE AT THIS TIME. SUCH, ALL MEDS WERE HELD DURING THE NIGHT. PT DENIED ANY COMPLAINTS OF PAIN, NAUSEA OR SOB AND SLEPT WELL DURING THE NIGHT. VITALS REMAINED STABLE. NO OTHER ACUTE CHANGES IN PT CONDITION NOTED. REPORT GIVEN TO ONCOMING RN.
[2019-04-29 08:35] LABS: Albumin, Blood 2.5 g/dL (3.4-5.0); Anion Gap 9 mmol/L (6-16); Blood Urea Nitrogen 23 mg/dL (8-24); Bun/Creatinine Ratio 8.4 (12.0-20.0); CO2, Blood 22 mmol/L (21-32); Calcium, Blood 10.8 mg/dL (8.5-10.1); Chloride, Blood 111 mmol/L (98-108); Creatinine, Blood 2.75 mg/dL (0.60-1.20); Glomerular Filtration Rate 23 (60-); Glucose, Blood 76 mg/dL (70-99); Phosphorus, Blood 2.7 mg/dL (2.5-4.9); Potassium, Blood 3.5 mmol/L (3.5-5.5); Sodium, Blood 142 mmol/L (136-145)
--- NOTE | 2019-04-29 16:14 | NUR ---
SHIFT SUMMARY NO ACUTE CHANGES. PATIENT SOMETIMES COOPERATIVE WITH CARE AND SOMETIMES COMBATIVE. PATIENT CONTINUES TO BE NPO. DR. OJEDA CONSULTED ON PATIENT TODAY. PATIENT DENIES PAIN, NAUSEA, AND SHORTNESS OF BREATH. PATIENT NAPPED MOST OF SHIFT. CALL LIGHT IN REACH, WILL CONTINUE TO MONITOR.
--- NOTE | 2019-04-29 22:16 | NUR ---
FALL AT APPROXIMATELY 1945, THIS RN WAS CALLED BY MONITORING STATING THAT THE PT WAS OVER THE SIDE OF THE BED. WHEN THE TERMINAL CLERK WENT IN TO CHECK ON THE PT, HE WAS ALREADY ON THE FLOOR. THE PT WAS RETURNED TO THE BED WITH A LIFT, AND ASSESSED. THE PT HAD NEW SKIN TEARS ON HIS ABD, BUT HAD NO OTHER SIGNS OF BRUISING OR OPEN WOUNDS, AND WAS NEUROLOGICALLY INTACT AT HIS BASELINE. VITALS WERE STABLE. THE HOSPITALIST BORA REINOSO WAS INFORMED, WHO ORDERED NEURO CHECKS Q30 MINUTES X 3. PT REMAINED NEUROLOGICALLY INTACT AT HIS BASELINE. WILL CONTINUE TO MONITOR.
[2019-04-30 04:41] LABS: Hematocrit 34.5 % (37.0-53.0); Hemoglobin 11.1 g/dL (13.5-17.5); Mean Corpuscular HGB 30.6 pg (26.0-34.0); Mean Corpuscular HGB Conc 32.2 g/dL (31.5-36.5); Mean Corpuscular Volume 95 fL (80-100); Mean Platelet Volume 9.6 fL (9.1-12.4); Platelet Count 228 K/mm3 (150-400); RDW Coefficient Variation 14.5 % (11.7-14.2); Red Blood Cell Count 3.63 M/mm3 (4.30-5.90); White Blood Cell Count 9.52 K/mm3 (4.00-11.30)
[2019-04-30 04:59] LABS: Albumin, Blood 2.6 g/dL (3.4-5.0); Anion Gap 11 mmol/L (6-16); Blood Urea Nitrogen 25 mg/dL (8-24); Bun/Creatinine Ratio 9.1 (12.0-20.0); CO2, Blood 21 mmol/L (21-32); Calcium, Blood 11.5 mg/dL (8.5-10.1); Chloride, Blood 111 mmol/L (98-108); Creatinine, Blood 2.76 mg/dL (0.60-1.20); Glomerular Filtration Rate 23 (60-); Glucose, Blood 80 mg/dL (70-99); Phosphorus, Blood 3.2 mg/dL (2.5-4.9); Potassium, Blood 3.6 mmol/L (3.5-5.5); Sodium, Blood 143 mmol/L (136-145)
--- NOTE | 2019-04-30 13:30 | NUR ---
COMFORT CARE PATIENT TRANSITIONED TO COMFORT CARE. DR. THOMAS SPOKE WITH FAMILY. FAMILY IN AGREEMENT. PATIENT RESTING QUIETLY IN BED. DENIES PAIN, NAUSEA, AND SHORTNESS OF BREATH. RREPORTED SOME STIFFNESS AO WAS REPOSITIONED TO PATIENT SATISFACTION. CALL LIGHT IN REACH, WILL CONTINUE TO MONITOR.
--- NOTE | 2019-05-01 06:07 | NUR ---
SHIFT SUMMARY PT IS AN 89 Y/O MALE, ADMITTED FOR ACUTE RENAL FAILURE. PT IS CURRENTLY STRICT NPO DUE TO FAILING ALL SWALLOWING EVALS, AND IS ON COMFORT CARE. PT DID REPORT GENERAL PAIN AND WAS MEDICATED WITH PRN ROXICODONE ONCE. HE DENIED ANY NAUSEA OR SOB, AND SLEPT COMFORTABLY DURING THE NIGHT. NO ACUTE CHANGES IN PT CONDITION NOTED DURING THE NIGHT. WILL CONTINUE TO MONITOR AND TREAT PER EMAR.
--- NOTE | 2019-05-01 10:56 | NUR ---
[facility] CARE COMFORT CARE VISIT. Visit to pt's room as two CONVERTING TECHNICIAN's were finishing changing attends and repositioning pt. He has been sleeping prior to that per CONVERTING TECHNICIAN. Pt has ability to keep strong server cashier on CONVERTING TECHNICIAN's arm but let go when gently coached to do so. No striking out, agitation or loud calling out noted. Pt appears anxious with intervention but once settled in new position eased back to restful looking face and body. Pt is currently NPO. [facility] staff stated he could not return if NPO. RN called at my request and informed [facility] that pt will be NPO for remainder of his life as he is comfort care, high risk for choking and will have Hospice support for s/s management and staff support on d/c. Hospice order entered and discussed this and medicaitons with Dr Bentley. Case conferenced with GRADY, PIPE, and Petra Dinero and Jackie strauss. After additional information provided to staff at [facility], they will accept Gordon back today if d/c'd from hospital with hospice & hospoice able to see pt today. They requested CM arrange gurney transport. Pt is not demonstrating nonverbal indicators of pain or agitation in his sleep once settled again. He was demonstration experiencing anxiety with gripping, wide open, fearful eyes during position change and attends change. Recommend ativan be added to his prn medications for comfort here and on d/c with HOspice. He has a scopolomine patch on currently and he has been given Roxicodone prn per eMAR for discomfort/pain.
--- NOTE | 2019-05-01 19:39 | NUR ---
SHIFT SUMMARY PATIENT ON COMFORT CARE. ALERT TO SELF. WILL WAKE TO VERBAL STIMULI BUT HAS BEEN RESTING THROUGHOUT THE SHIFT. PATIENT DOES NOT APPEAR TO BE IN ANY PAIN. Q2 HOUR REPOSITION. PATIENT HAS A WET NONPRODUCTIVE COUGH. RN SUCTIONED PRN TOLERATED BY PATIENT. SCOPOLAMINE PATCH IN PLACE. RN MEDICATED X1 WITH ATROPINE DROPS FOR EXCESSIVE SECRETIONS. NO ACUTE CHANGES THIS SHIFT. BED ALARM IN PLACE. REPORT GIVEN TO DRY CLEANING SUPERVISOR RN.
--- NOTE | 2019-05-02 05:10 | NUR ---
SHIFT SUMMARY PT PHYSICALLY LOOKS COMFORTABLE & WITHOUT PAIN. NO CHANGES T/O THE SHIFT. PT REPOSITIONED Q2-3 HOURS. WILL CONTINUE TO MONITOR UNTIL TURNOVER IS COMPLETE.
[2019-05-02] MEDS ORDERED: ATROPINE 0.01%-10 ML SL (10:56)
[2019-05-02] MEDS ORDERED: OXYCODONE10 MG/0.5 PO (10:57)
[2019-05-02] MEDS ORDERED: Transderm-Scop1 EACH TD (10:58)
--- NOTE | 2019-05-02 14:07 | NUR ---
Comfort Care: Pt appears to be comfortable. He is resting in bed with his eyes closed. He is calm, peaceful. Respirations even and unlabored. Care managers working on discharge plan.
--- NOTE | 2019-05-02 18:28 | NUR ---
[facility] initial visit: Mr. Rodriguez did not respond to voice or touch. He was snoring and a bit apnec. He appears comfortable and well cared-for by nursing. No family present. Per chart, he is [employer]. I provided prayer and presence at bedside. I will remain available to pt and family.
--- NOTE | 2019-05-02 18:36 | NUR ---
SUMMARY PT RESTING QUIETLY IN BED, REMAINS ON COMFORT CARE, MED PER EMAR FOR S/S OF DISCOMFORT, SPOKE WITH EMMETT FROM [facility] AND PT MAY GO BACK ON HOSPICE IN THE NEXT DAY OR TWO, ONCE EQUIPMENT IS IN PLACE, NO ACUTE CHANGES, WILL CONT TO MONITOR
--- NOTE | 2019-05-03 05:32 | NUR ---
SHIFT SUMMARY PT HAS SIGNIFICANT GURGLING. ATROPINE GIVEN PER EMAR X3 THIS SHIFT. PT SUCTIONED NEEDED & ALLOWED. PT DOES NOT TOLERATED SUCTIONING WELL & FIGHTS IT. NO OTHER CHANGES THIS SHIFT. PT OTHERWISE APPEARS COMFORTABLE. WILL CONTINUE TO MONITOR UNTIL TURNOVER IS COMPLETE.
--- NOTE | 2019-05-03 13:45 | NUR ---
PT WITH GURGLING AND WET SOUNDING RESP THAT SCOPOLOMIN OR ATROPINE HASN'T HELPED. ATTEMPTS AT SUCTIONING WITH YANKUER SECRETIONS ARE TOO LOW TO REACH. PT APPEARS COMFORTABLE DESPITE WET SOUNDING RESP.
--- NOTE | 2019-05-03 17:17 | NUR ---
SHIFT SUMMARY PT TURNED Q2 HOURS. SUCTIONING HAS BEEN ATTEMPTED TO EASE WET SOUNDING BREATHING BUT SECRETIONS REMAIN TOO LOW TO REACH. OPENS HIS EYEST TO TOUCH. PLANS FOR DISCHARGE TOMORROW TO [facility].
--- NOTE | 2019-05-04 17:42 | NUR ---
SHIFT SUMMARY PT CHANGED SINCE YESTERDAY. MUCH LESS WET SOUNDING WITH RESP. RESP ARE MORE SHALLOW RAPID AND NONLABORED. COLORING DUSKY WITH MOUTH SLACK UNLIKE YESTERDAY. ARMS LIMP WHILE YESTERDAY HE MOVED THEM ABOUT AND UNCOVERED HIMSELF. SKIN WARM TO TOUCH. TRANSFER TO [facility] HELD DUE TO CHANGE AND APPEARING CLOSER TO THE END OF HIS LIFE.
--- NOTE | 2019-05-05 06:20 | NUR ---
SHIFT SUMMARY PATIENTS SECRETIONS WERE INCREASED AT BEGINING OF SHIFT. PATIENT HAS SCOPALAMINE PATCH ON AND IS GETTING ATROPINE DROPS. RESPIRATIONS ARE EQUAL AND LABORED AT TIMES. DID MEDICATE FOR PAIN ONCE.
--- NOTE | 2019-05-05 15:09 | NUR ---
Pt visit this afternoon. Pt is resting in bed and appears comfortable. Pt is non responsive. Offered therapeutic voice and touch. No signs of distress. Spoke with Pt's bedside nurse Elkin and he reports no concerns. Palliative Care will remain available
--- NOTE | 2019-05-05 17:45 | NUR ---
SHIFT SUMMARY THE PATIENT IS A COMFORT CARE PATIENT AND HAS BEEN REPOSITIONED AND MADE COMFORTABLE POSSIBLE. THE PATIENT HAS RECIEVED PAIN MEDICATION ONCE THIS SHIFT AND ATOPINE DROPS SEVERAL TIMES. WILL CONTINUE TO MONITOR
--- NOTE | 2019-05-06 03:56 | NUR ---
SHIFT SUMMARY PT REMAINED COMFORTABLE T/O SHIFT. NO CHANGES IN PT STATUS. PT DID NOT REQUIRE ANY PAIN MEDICATION. LESS SECRETIONS NOTED T/O SHIFT. PT REPOSITIONED AND CHANGED NEEDED. WILL CONTINUE TO MONITOR.
--- NOTE | 2019-05-06 07:42 | NUR ---
COMFORT CARE PT DOES NOT APPEAR TO BE IN ANY DISTRESS AT THIS TIME. REPOSITIONED.
--- NOTE | 2019-05-06 10:18 | NUR ---
ENTERED ROOM TO DO COMFORT CARE ROUNDING NOTED NO RESPIRATIONS AND NO HEARTBEAT PRESENT. NOTIFIED PLANIMETER OPERATORTHO.
--- NOTE | 2019-05-06 11:03 | NUR ---
NOTIFIED DR FARMER NOTIFIED DR FARMER PT . METEOROLOGIST IN CHARGE NOTIFIED NURSING MANNEQUIN REFINISHER.
--- NOTE | 2019-05-06 12:37 | NUR ---
MORTUARY HERE TO MEAT BUTCHER PT.
== END 2019-05-06 10:15 | DRG 683 ==
LOC: ER 07:01 → MEDS 07:53 → UNDODEPER 04-25 03:19 → MEDS 04-25 12:51
PROVIDERS: Emergency Medicine; Internal Medicine; ADMIT Internal Medicine
DX: N17.9 Acute kidney failure, unspecified (principal); E87.1 Hypo-osmolality and hyponatremia; F02.81 Dementia in other diseases classified elsewhere, unspecified severity, with behavioral disturbance; E87.0 Hyperosmolality and hypernatremia; F05 Delirium due to known physiological condition; I13.0 Hypertensive heart and chronic kidney disease with heart failure and stage 1 through stage 4 chronic kidney disease, or unspecified chronic kidney disease; G93.49 Other encephalopathy; Z51.5 Encounter for palliative care; G30.1 Alzheimer's disease with late onset; N18.4 Chronic kidney disease, stage 4 (severe); E86.0 Dehydration; E83.52 Hypercalcemia; E03.9 Hypothyroidism, unspecified; Z86.711 Personal history of pulmonary embolism; J44.9 Chronic obstructive pulmonary disease, unspecified; I50.812 Chronic right heart failure; R13.10 Dysphagia, unspecified; N40.0 Benign prostatic hyperplasia without lower urinary tract symptoms; Z79.01 Long term (current) use of anticoagulants; F17.210 Nicotine dependence, cigarettes, uncomplicated; Z66 Do not resuscitate; M10.9 Gout, unspecified; D63.1 Anemia in chronic kidney disease; I35.0 Nonrheumatic aortic (valve) stenosis; E83.39 Other disorders of phosphorus metabolism
CPT/HCPCS: 36415; 51702; 73560-RT; 80048; 80053; 80069; 81001; 82306; 82330; 82397; 82550; 82652; 83880; 83970; 84100; 85025; 85027; 92610; 94640; 94760; 96360; 96361; 99285-25; A9270; A9270-GY; J7030; J7060